=== PATIENT | female | born 1945 | race Caucasian/White ===

== ENCOUNTER → 2023-09-04 07:23 | Outpatient (REF) | payer MEDICARE, OTHER, SELFPAY ==
[2023-09-04 10:04] LABS: ALT (SGPT) 19 U/L (0-35); AST (SGOT) 24 U/L (14-36); Albumin 4.1 g/dl (3.5-5.0); Alkaline Phosphatase 52 U/L (38-126); Blood Urea Nitrogen 18 mg/dl (7-17); Calcium 9.5 mg/dl (8.4-10.2); Carbon Dioxide 31 mmol/L (22-30); Chloride 100 mmol/L (98-107); Glucose 95 mg/dl (70-99); HDL Cholesterol 62 mg/dl; LDL Cholesterol, Calculated 72 mg/dl; Potassium 4.3 mmol/L (3.5-5.1); Sodium 138 mmol/L (135-145); Total Bilirubin 1.2 mg/dl (0.2-1.3); Total Cholesterol 156 mg/dl (50-199); Total Protein 6.7 g/dl (6.3-8.2); Triglyceride 111 mg/dl (10-149); Very Low Density Lipoprotein 22 mg/dl (0-30); eGFR > 60.00
[2023-09-04 10:21] LABS: Free T4 1.19 ng/dl (0.78-2.19); Vitamin D, 25-OH*** 46.5 ng/mL (30-80)
[2023-09-04 10:35] LABS: TSH 0.87 uIU/ml (0.47-4.68)
[2023-09-04 12:29] LABS: Glycohemoglobin (HgbA1c) 5.6 % (4.0-5.6)
== END ==
LOC: HWLAB 07:23
PROVIDERS: ATTENDING PHYSICIAN Internal Medicine Rheumatology; FAMILY PHYSICIAN Family Medicine
DX: E55.9 Vitamin D deficiency, unspecified (principal); M15.0 Primary generalized (osteo)arthritis; M16.0 Bilateral primary osteoarthritis of hip; M25.50 Pain in unspecified joint; M51.37 Other intervertebral disc degeneration, lumbosacral region; M70.61 Trochanteric bursitis, right hip; M79.10 Myalgia, unspecified site; M81.0 Age-related osteoporosis without current pathological fracture; E03.9 Hypothyroidism, unspecified; E78.2 Mixed hyperlipidemia; R73.01 Impaired fasting glucose
CPT/HCPCS: 36415; 80053; 80061; 82306; 83036; 84439; 84443

== ENCOUNTER → 2023-10-03 13:30 | Outpatient (REF) | payer MEDICARE, OTHER, SELFPAY | LOC: WDC 13:30 | PROVIDERS: ATTENDING PHYSICIAN Obstetrics & Gynecology; FAMILY PHYSICIAN Family Medicine | DX: R92.8 Other abnormal and inconclusive findings on diagnostic imaging of breast (principal); R93.89 Abnormal findings on diagnostic imaging of other specified body structures | CPT/HCPCS: 76642 ==

== ENCOUNTER → 2023-10-19 06:35 | Day surgery (SDC) | payer MEDICARE, OTHER, SELFPAY | LOC: GI 06:35 | PROVIDERS: ATTENDING PHYSICIAN Internal Medicine | DX: D12.2 Benign neoplasm of ascending colon (principal); K57.30 Diverticulosis of large intestine without perforation or abscess without bleeding; K64.9 Unspecified hemorrhoids; K22.89 Other specified disease of esophagus; K44.9 Diaphragmatic hernia without obstruction or gangrene; K31.89 Other diseases of stomach and duodenum; Q40.3 Congenital malformation of stomach, unspecified; R12 Heartburn; Z80.0 Family history of malignant neoplasm of digestive organs | CPT/HCPCS: 45385; 43239; 88305; 88342 ==

== ENCOUNTER → 2024-02-09 07:51 | Outpatient (REF) | payer MEDICARE, OTHER, SELFPAY ==
[2024-02-09 10:29] LABS: ALT (SGPT) 24 U/L (0-35); AST (SGOT) 23 U/L (14-36); Albumin 4.2 g/dl (3.5-5.0); Alkaline Phosphatase 64 U/L (38-126); Blood Urea Nitrogen 19 mg/dl (7-17); Calcium 9.3 mg/dl (8.4-10.2); Carbon Dioxide 27 mmol/L (22-30); Chloride 101 mmol/L (98-107); Glucose 102 mg/dl (70-99); HDL Cholesterol 58 mg/dl; LDL Cholesterol, Calculated 96 mg/dl; Potassium 4.3 mmol/L (3.5-5.1); Sodium 142 mmol/L (135-145); Total Bilirubin 1.3 mg/dl (0.2-1.3); Total Cholesterol 176 mg/dl (50-199); Total Protein 6.7 g/dl (6.3-8.2); Triglyceride 114 mg/dl (10-149); Very Low Density Lipoprotein 22 mg/dl (0-30); eGFR > 60.00
== END ==
LOC: HWLAB 07:51
PROVIDERS: ATTENDING PHYSICIAN Family Medicine
DX: E78.2 Mixed hyperlipidemia (principal); R73.01 Impaired fasting glucose; E03.9 Hypothyroidism, unspecified
CPT/HCPCS: 36415; 80053; 80061; 84439; 84443

== ENCOUNTER → 2024-03-08 09:43 | Outpatient (REF) | payer MEDICARE, OTHER, SELFPAY | LOC: RCS 09:43 | PROVIDERS: ATTENDING PHYSICIAN Family Medicine | DX: R07.2 Precordial pain (principal) | CPT/HCPCS: 93017; 93350 ==

== ENCOUNTER 2024-03-19 06:25 | Day surgery (SDC) | payer MEDICARE, OTHER, SELFPAY ==
[2024-03-19 06:45] VITALS: BP 149/78
[2024-03-19] MEDS: LOW STRENGTH ASPIRIN 81 MG PO (07:22)
[2024-03-19 07:24] VITALS: BMI 32.2
[2024-03-19 07:38] LABS: Hematocrit 43.2 % (37.0-47.0); Hemoglobin 14.6 g/dL (12.0-16.0); Mean Corp Hgb Conc. 33.8 g/dL (33.0-37.0); Mean Corpuscular Hgb 29.2 pg (27.0-31.0); Mean Corpuscular Volume 86.4 fL (81.0-99.0); Mean Platelet Volume 9.6 fL (7.4-10.4); Platelet Count 187 10^3/uL (130-400); Red Cell Dist. Width 12.9 % (11.5-14.5); White Blood Cell Count 5.6 10^3/uL (4.8-10.8)
[2024-03-19 07:46] LABS: ALT (SGPT) 29 U/L (0-35); AST (SGOT) 32 U/L (14-36); Albumin 4.8 g/dl (3.5-5.0); Alkaline Phosphatase 56 U/L (38-126); Blood Urea Nitrogen 19 mg/dl (7-17); Calcium 9.9 mg/dl (8.4-10.2); Carbon Dioxide 30 mmol/L (22-30); Chloride 101 mmol/L (98-107); Estimated Creatinine Clearance 56 ml/min; Glucose 112 mg/dl (70-99); Potassium 4.2 mmol/L (3.5-5.1); Sodium 142 mmol/L (135-145); Total Bilirubin 1.4 mg/dl (0.2-1.3); Total Protein 7.6 g/dl (6.3-8.2); eGFR > 60.00
[2024-03-19 08:40] VITALS: BP 115/70
[2024-03-19 08:55] VITALS: BP 112/54
[2024-03-19 09:10] VITALS: BP 118/58
[2024-03-19 09:25] VITALS: BP 116/56
[2024-03-19 09:43] VITALS: BP 114/54
--- NOTE | 2024-03-19 15:53 | ITS.CL.CATH ---
Labor Service Representative - Catheterization
Cardiac Catheterization
Procedure Report:
LEFT HEART CATHETERIZATION
Date of Procedure: March 19, 2024
Referring: Dr. Tan Thompson
PROCEDURES:
1. Left heart catheterization with coronary and single-plane left ventriculography
INDICATION: Exercise intolerance with heart block induced with exercise
ACCESS: Right radial artery, 6 Kiswahili sheath
HEMODYNAMICS : (mmHg)
AO (s/d) : 135/64, 88
LV (s/d) : 138/12
LVEDP : 28
CORONARY FINDINGS
DOMINANCE: Left
LEFT MAIN: Normal
LEFT ANTERIOR DESCENDING: The LAD arises normally from the left main and runs in the anterior interventricular groove. The LAD has minor irregularities over its course. The distal vessel wraps completely around the apex supplying a portion of the
inferior wall. Only minor irregularities are present
CIRCUMFLEX: The circumflex is a moderate to large caliber dominant vessel. OM1 is a medium size vessel that arises proximally from the circumflex and is widely patent. OM 2 is small and tortuous. The circumflex continues in the AV groove
supplying a small OM 3 and terminating in the PDA and posterolateral branch which are both patent
RIGHT CORONARY ARTERY: Small nondominant
VENTRICULOGRAPHY: Left ventriculography was performed in an MCFADDEN projection. The digital single-plane left ventricular ejection fraction is estimated at 65%. No regional wall motion abnormalities are noted.
RADIATION SUMMARY: Fluoro Time (min): 2.2, Dose (mGy): 213.7, DAP (Gy.cm2) : 15.8
Closure Device: TR band
CONCLUSIONS
1. Nonobstructive coronary disease
2. Preserved left ventricular systolic function
Copy to: Dr. Tan Thompson
== END 2024-03-19 11:45 | disposition home or self-care (01) ==
LOC: CATH 06:25
PROVIDERS: ATTENDING PHYSICIAN Internal Medicine Interventional Cardiology; FAMILY PHYSICIAN Family Medicine; OTHER PHYSICIAN Internal Medicine Cardiovascular Disease
DX: I25.10 Atherosclerotic heart disease of native coronary artery without angina pectoris (principal); E78.00 Pure hypercholesterolemia, unspecified; E03.9 Hypothyroidism, unspecified; Z79.82 Long term (current) use of aspirin
CPT/HCPCS: 80053; 85027; 93458; C1894; Q9967

== ENCOUNTER → 2024-04-04 09:53 | Outpatient (REF) | payer MEDICARE, OTHER, SELFPAY | LOC: HWWDC 09:53 | PROVIDERS: ATTENDING PHYSICIAN Obstetrics & Gynecology; FAMILY PHYSICIAN Family Medicine | DX: Z12.31 Encounter for screening mammogram for malignant neoplasm of breast (principal) | CPT/HCPCS: 77063; 77067 ==

== ENCOUNTER → 2024-04-17 12:48 | Outpatient (REF) | payer MEDICARE, OTHER, SELFPAY | LOC: HWRCS 12:48 | PROVIDERS: ATTENDING PHYSICIAN Physician Assistant Medical; FAMILY PHYSICIAN Family Medicine | DX: I44.1 Atrioventricular block, second degree (principal) | CPT/HCPCS: 93306 ==

== ENCOUNTER → 2024-04-25 09:53 | Outpatient (REF) | payer MEDICARE, OTHER, SELFPAY | LOC: WDC 09:53 | PROVIDERS: ATTENDING PHYSICIAN Obstetrics & Gynecology; FAMILY PHYSICIAN Family Medicine | DX: R92.2 Inconclusive mammogram (principal) | CPT/HCPCS: 76641 ==

== ENCOUNTER 2024-04-29 10:23 | Day surgery (SDC) | payer MEDICARE, OTHER, SELFPAY ==
[2024-04-29] VITALS (9 sets, daily range): BP systolic 114–145; BP diastolic 53–69; BMI 34.1
[2024-04-29 10:38] LABS: Hematocrit 41.3 % (37.0-47.0); Hemoglobin 13.6 g/dL (12.0-16.0); Mean Corp Hgb Conc. 32.9 g/dL (33.0-37.0); Mean Corpuscular Hgb 28.9 pg (27.0-31.0); Mean Corpuscular Volume 87.9 fL (81.0-99.0); Mean Platelet Volume 9.1 fL (7.4-10.4); Platelet Count 186 10^3/uL (130-400); White Blood Cell Count 5.7 10^3/uL (4.8-10.8)
[2024-04-29 10:55] LABS: ALT (SGPT) 23 U/L (0-35); AST (SGOT) 24 U/L (14-36); Albumin 4.6 g/dl (3.5-5.0); Alkaline Phosphatase 52 U/L (38-126); Blood Urea Nitrogen 15 mg/dl (7-17); Calcium 9.4 mg/dl (8.4-10.2); Carbon Dioxide 30 mmol/L (22-30); Chloride 102 mmol/L (98-107); Glucose 102 mg/dl (70-99); Potassium 4.2 mmol/L (3.5-5.1); Sodium 140 mmol/L (135-145); Total Bilirubin 1.5 mg/dl (0.2-1.3); Total Protein 7.2 g/dl (6.3-8.2); eGFR > 60.00
--- NOTE | 2024-04-29 14:40 | ITS.CL.PACE ---
Valuer - Pacemaker Implant
Pacemaker Implant
Procedure Report:
PACEMAKER IMPLANT REPORT
Primary Care Provider: Dr. Omar Lockhart
Primary endoscopy technician: Dr Gallo Thompson
Date of Procedure: April 29, 2024
Procedure:
Implantation of dual-chamber permanent pacemaker utilizing the left bundle branch for conduction system pacing
Indication/Diagnosis:
Non-reversible symptomatic bradycardia due to sinus node dysfunction (symptomatic chronotropic incompetence)
During exercsie stress test developed chest discomfort and 2:1 AV block also seen on outpatient monitor both performed in February 2024
After informed consent was obtained, 'time out' was called and confirmed, the patient was prepped and draped in a sterile fashion. Lidocaine with epi was used for local anesthesia. Central venous access was obtained via subclavian venipuncture. An
incision was made along the left chest and a pre-pectoral pocket was formed. Using a Seldinger technique and peel-away sheaths, the pacing leads were placed under fluoroscopic guidance.
Fluoroscopy was used to determine likely anatomic site for left bundle branch pacing. The Medtronic C315 sheath was used to deliver the Medtronic 3830 Selectsecure pacing lead with the helix exposed just exposed from the sheath tip during continuous
monitoring when pacemapping the septum during gentle clockwise rotation to obtain a paced QRS morphology of a W pattern in lead V1. Once the suspected optimal site was identified, lead deployment was performed with several rapid rotations as paced
QRS morphology was intermittently monitored until a paced QRS complex in lead V1 demonstrated development of an R wave [ ] (qR or rSR).
Unipolar pacing impedance dropped by [id number] ohms suggesting it had reached the left ventricular subendocardial.
Stable VEgm injury current is present throughout final lead position including at end of case, suggesting there was no perforation through the septum into the LV cavity.
Unipolar pacing impedance is 1100 Ohms
Unipolar pacing threshold is stable at 1 V @ 0.4 ms.
Final conduction system paced QRS complex duration is 98 ms
LVAT is 85 ms and peak V5 -> peak V1 timing is 45 ms
Right atrial lead was placed at the RAA.
Once testing (see below) showed adequate and stable function, the leads were secured using the suture sleeves. The pocket was liberally irrigated with antibiotic solution. The leads were connected to the generator header and the leads and
generator were placed within the pocket. Fluoroscopy confirmed stable lead position. The pocket was closed in the typical fashion.
Fluoroscopy was used to guide lead placement.
IMPLANTS:
Medtronic [id number], SN: [id number], Left Pectoral
RA: Medtronic 5076-45, SN: [id number], RAA
Left Bundle: Medtronic 3830 , SN:[id number], Interventricular septum at LBB
DEVICE TESTING:
Sensing: RA 3.5 mV, RV 8 mV
Capture: RA 2.75 V@0.4ms, RV 0.75 V@0.4ms
Ohms: RA 606, RV 1120
FINAL PROGRAMMING
Dharmesh Pacing: AAIR+ 60-130 ppm
COMPLICATIONS:
None
CONCLUSIONS:
Successful implant of dual chamber permanent pacemaker utilizing Left Bundle Branch conduction system capture for ventricular resynchronization pacing.
Note that despite multiple areas mapped in the right atrium a higher than typically observed pacing threshold is accepted.
RECOMMENDATIONS:
1. Post-op care (tele, CXR, IV abx)
2. In-Office wound check in 5-7 days
Copy to:
Dr. Omar Lockhart
Dr Gallo Thompson
[2024-04-29] MEDS: TYLENOL 650 MG PO (14:51)
--- NOTE | 2024-04-29 15:12 | PTCARENOTE ---
Patient admitted to IVU awake and alert. Left chest wall dressing CDI with left arm sling, precaution reviewed. NSR on telemetry, at beside, call hough in reach
--- NOTE | 2024-04-29 16:01 | PTCARENOTE ---
Patient out of bed to the chair, voided. Call hough in reach
[2024-04-29] MEDS: LIPITOR 10 MG PO (17:45)
[2024-04-29] MEDS: ANCEF 5 IV (17:46)
[2024-04-30] MEDS: ANCEF 5 IV (01:59)
[2024-04-30] MEDS: TYLENOL 650 MG PO ×2 (02:10→09:13)
[2024-04-30 03:53] VITALS: BP 113/61
[2024-04-30 03:56] VITALS: BMI 34.1
[2024-04-30 04:25] LABS: Hematocrit 38.9 % (37.0-47.0); Hemoglobin 12.8 g/dL (12.0-16.0); Mean Corp Hgb Conc. 32.9 g/dL (33.0-37.0); Mean Corpuscular Hgb 28.8 pg (27.0-31.0); Mean Corpuscular Volume 87.6 fL (81.0-99.0); Mean Platelet Volume 9.1 fL (7.4-10.4); Platelet Count 177 10^3/uL (130-400); Red Blood Cell Count 4.44 10^6/uL (4.20-5.40); Red Cell Dist. Width 12.8 % (11.5-14.5); White Blood Cell Count 9.5 10^3/uL (4.8-10.8)
[2024-04-30 05:06] LABS: Blood Urea Nitrogen 18 mg/dl (7-17); Calcium 9.3 mg/dl (8.4-10.2); Carbon Dioxide 25 mmol/L (22-30); Chloride 103 mmol/L (98-107); Estimated Creatinine Clearance 52 ml/min; Glucose 110 mg/dl (70-99); Magnesium 2.4 mg/dl (1.6-2.3); Potassium 4.4 mmol/L (3.5-5.1); Sodium 137 mmol/L (135-145); eGFR > 60.00
[2024-04-30] MEDS: SYNTHROID 100 MCG PO (06:22)
[2024-04-30 06:51] VITALS: BP 116/52
--- NOTE | 2024-04-30 07:46 | PTCARENOTE ---
care link express completed as ordered.
--- NOTE | 2024-04-30 08:25 | W.PN.CARDCBS ---
Today's Communication / Plan
-
post DC PPM, stable for d/c home
Impression / Plan
-
PCP: Omar Lockhart MD
CDY: Tan Riojas MD
Impression:
Symptomatic bradycardia
SSS
post DC PPM 04/29/2024
HTN
Hypothyroidism
Hyperlipidemia
Chronic lumbar back pain with sciatica
Plan:
post device site stable
tele SB with occ Atrial pacing, settings 50-130bpm
[facility]link with stable parameters
denies LH, dizziness
CXR no PTX, leads in position
Hypothyroidism continue levothyroxine
HLD continue atorvastatin
Activity restrictions reviewed.
Incision check 1 week at [facility]
home today
Progress Note - Trip Rider
Subjective
Date of Service: April 30, 2024
mild inc pain, denies cp, sob, LH, dizziness
Objective
Labs:
04/30/24 04:03
04/30/24 04:03
Labs
Hgb 12.8 g/dL (12.0-16.0) 04/30/24 04:03
Hct 38.9 % (37.0-47.0) 04/30/24 04:03
Plt Count 177 10^3/uL (130-400) 04/30/24 04:03
Sodium 137 mmol/L (135-145) 04/30/24 04:03
Potassium 4.4 mmol/L (3.5-5.1) 04/30/24 04:03
BUN 18 mg/dl (7-17) H 04/30/24 04:03
Creatinine 0.7 mg/dL (0.6-1.0) 04/30/24 04:03
Glucose 110 mg/dl (70-99) H 04/30/24 04:03
Vital Signs and I&O:
Vital Signs
Temp Pulse Resp BP Pulse Ox
98.0 F 54 16 113/61 97
04/30/24 06:52 04/30/24 04:00 04/30/24 06:52 04/30/24 03:53 04/30/24 06:52
Vital Signs
Temp Pulse Resp BP Pulse Ox
98.0 F 54 16 113/61 97
04/30/24 06:52 04/30/24 04:00 04/30/24 06:52 04/30/24 03:53 04/30/24 06:52
Intake & Output
04/28/24 04/29/24 04/30/24 05/01/24
06:59 06:59 06:59 06:59
Intake Total 250 / 250
Balance 250 / 250
Physical Exam
Physical Exam
NAD, AOX3
S1, S2, RRR
CTAB, non labored, no wheeze
SNTND Bsx4
L CW dressing c/d/i no HT, mildly tender to palpation, pressure dressing removed
--- NOTE | 2024-04-30 10:04 | PTCARENOTE ---
received patient this am, monitor shows SB, VSS, LCW pressure dsg. removed, Acuseal intact. patient is hoping to be D/C to home today.
[2024-04-30 11:09] VITALS: BP 127/61
[2024-04-30 11:10] VITALS: BP 127/61
--- NOTE | 2024-04-30 11:33 | CM ---
spoke to pt in room, she is prev indep, lives with her husb in a 2 story home with no steps to enter. she denies any dme's or dc planning needs. plan is for dc to home when medically stable
--- NOTE | 2024-04-30 12:05 | PTCARENOTE ---
D/C instructions given to patient, verbalizes understanding. understands post pacemaker insertion instructions. INT D/C'd, telemetry D/C'd, personal belongings packed and sent home with patient. D/C to home via wc accompanied by staff.
--- NOTE | 2024-04-30 12:07 | W.DS.TRANS ---
DC Summary - Log Rafter
-
Discharge Instructions:
Discharge Diagnosis/Procedures Pacemaker implant
Diet Low Cholesterol
Driving Restrictions No driving for 1 week
Bathing Restrictions OK to Shower
Instructions:
Stand-Alone Forms: DC Inst - Implanted Device
Changes to Home Medications: No
Discharge Medications:
DC Medications w/original date entered in [employer]
levothyroxine 100 mcg tablet 100 mcg PO Q48H 04/28/11
levothyroxine 75 mcg tablet 75 mcg PO Q48H 12/20/16
atorvastatin 10 mg tablet 10 mg PO QPM 03/19/24
calcium 315 mg (as citrate)-vitamin D3 5 mcg (200 unit) tablet (Calcium Citrate + D) 1 tab PO DAILY PRN When no calcium intake w/ food 03/19/24
cholecalciferol (vitamin D3) 25 mcg (1,000 unit) tablet (Vitamin D3) 25 mcg PO DAILY 03/19/24
denosumab 60 mg/mL subcutaneous syringe (Prolia) 60 mg SC [id number] 03/19/24
pantoprazole 40 mg tablet,delayed release 40 mg PO DAILY PRN Indigestion 03/19/24
peg 400-propylene glycol (PF) 0.4 %-0.3 % eye drops in a dropperette (Systane (PF)) 1 drp ophthalmic (eye) DAILY PRN Dry eyes 03/19/24
Home Medication Changes
Pending Results: No
== END 2024-04-30 11:55 | disposition home or self-care (01) ==
LOC: CATH 10:23
PROVIDERS: Nurse Practitioner; ATTENDING PHYSICIAN Internal Medicine Cardiovascular Disease; FAMILY PHYSICIAN Family Medicine; OTHER PHYSICIAN Internal Medicine Cardiovascular Disease
DX: I49.5 Sick sinus syndrome (principal); Z79.890 Hormone replacement therapy; I44.1 Atrioventricular block, second degree; E78.2 Mixed hyperlipidemia
CPT/HCPCS: 33208; 71045; 80048; 80053; 83735; 85027; 93005; C1785; C1887; C1892; C1898; Q9967

== ENCOUNTER → 2024-05-23 10:17 | Outpatient (REF) | payer MEDICARE, OTHER, SELFPAY | LOC: CLAB 10:17 | PROVIDERS: ATTENDING PHYSICIAN Nurse Practitioner Family | DX: J02.9 Acute pharyngitis, unspecified (principal) | CPT/HCPCS: 87070 ==

== ENCOUNTER → 2024-07-15 07:56 | Outpatient (REF) | payer MEDICARE, OTHER, SELFPAY ==
[2024-07-15 09:42] LABS: ALT (SGPT) 20 U/L (0-35); AST (SGOT) 23 U/L (14-36); Albumin 4.5 g/dl (3.5-5.0); Alkaline Phosphatase 54 U/L (38-126); Blood Urea Nitrogen 19 mg/dl (7-17); Calcium 9.7 mg/dl (8.4-10.2); Carbon Dioxide 30 mmol/L (22-30); Chloride 101 mmol/L (98-107); Glucose 100 mg/dl (70-99); HDL Cholesterol 57 mg/dl; LDL Cholesterol, Calculated 88 mg/dl; Potassium 4.2 mmol/L (3.5-5.1); Sodium 134 mmol/L (135-145); Total Bilirubin 1.5 mg/dl (0.2-1.3); Total Cholesterol 170 mg/dl (50-199); Total Protein 6.8 g/dl (6.3-8.2); Triglyceride 127 mg/dl (10-149); Very Low Density Lipoprotein 25 mg/dl (0-30); eGFR > 60.00
[2024-07-15 09:57] LABS: Free T4 1.38 ng/dl (0.78-2.19); Vitamin D, 25-OH*** 36.7 ng/mL (30-80)
[2024-07-15 10:10] LABS: TSH 0.63 uIU/ml (0.47-4.68)
== END ==
LOC: HWLAB 07:56
PROVIDERS: ATTENDING PHYSICIAN Internal Medicine Rheumatology; FAMILY PHYSICIAN Family Medicine
DX: E03.9 Hypothyroidism, unspecified (principal); E78.2 Mixed hyperlipidemia; E55.9 Vitamin D deficiency, unspecified
CPT/HCPCS: 36415; 80053; 80061; 82306; 84439; 84443

== ENCOUNTER → 2024-10-21 13:52 | Outpatient (REF) | payer MEDICARE, OTHER, SELFPAY | LOC: WDC 13:52 | PROVIDERS: ATTENDING PHYSICIAN Obstetrics & Gynecology; FAMILY PHYSICIAN Family Medicine | DX: R92.8 Other abnormal and inconclusive findings on diagnostic imaging of breast (principal) | CPT/HCPCS: 76642 ==

== ENCOUNTER → 2024-11-25 07:13 | Outpatient (REF) | payer MEDICARE, OTHER, SELFPAY ==
[2024-11-25 10:06] LABS: ALT (SGPT) 19 U/L (0-35); Albumin 4.4 g/dl (3.5-5.0); Carbon Dioxide 28 mmol/L (22-30); Chloride 105 mmol/L (98-107); HDL Cholesterol 62 mg/dl; Potassium 4.1 mmol/L (3.5-5.1); Sodium 139 mmol/L (135-145); Total Protein 7.0 g/dl (6.3-8.2)
[2024-11-25 10:16] LABS: Alkaline Phosphatase 49 U/L (38-126); Blood Urea Nitrogen 20 mg/dl (7-17); Calcium 9.9 mg/dl (8.4-10.2); Very Low Density Lipoprotein 20 mg/dl (0-30); eGFR > 60.00
[2024-11-25 10:19] LABS: Glycohemoglobin (HgbA1c) 5.6 % (4.0-5.6)
[2024-11-25 10:22] LABS: TSH 0.82 uIU/ml (0.47-4.68)
[2024-11-25 10:31] LABS: AST (SGOT) 20 U/L (14-36); Glucose 93 mg/dl (70-99); LDL Cholesterol, Calculated 79 mg/dl
== END ==
LOC: HWLAB 07:13
PROVIDERS: ATTENDING PHYSICIAN Physician Assistant; FAMILY PHYSICIAN Family Medicine
DX: E55.9 Vitamin D deficiency, unspecified (principal); M81.0 Age-related osteoporosis without current pathological fracture; Z51.81 Encounter for therapeutic drug level monitoring; E03.9 Hypothyroidism, unspecified; R73.01 Impaired fasting glucose; E78.2 Mixed hyperlipidemia
CPT/HCPCS: 36415; 80053; 80061; 83036; 84439; 84443

== ENCOUNTER → 2024-12-30 10:29 | Outpatient (REF) | payer MEDICARE, OTHER, SELFPAY | LOC: HWRAD 10:29 | PROVIDERS: ATTENDING PHYSICIAN Internal Medicine Rheumatology; FAMILY PHYSICIAN Family Medicine | DX: M81.0 Age-related osteoporosis without current pathological fracture (principal); Z13.820 Encounter for screening for osteoporosis | CPT/HCPCS: 77080 ==

== ENCOUNTER → 2025-03-24 10:46 | Outpatient (REF) | payer MEDICARE, OTHER, SELFPAY | LOC: HWWDC 10:46 | PROVIDERS: ATTENDING PHYSICIAN Obstetrics & Gynecology; FAMILY PHYSICIAN Family Medicine | DX: Z12.31 Encounter for screening mammogram for malignant neoplasm of breast (principal) | CPT/HCPCS: 77063; 77067 ==

== ENCOUNTER → 2025-04-15 09:59 | Outpatient (REF) | payer MEDICARE, OTHER, SELFPAY | LOC: WDC 09:59 | PROVIDERS: ATTENDING PHYSICIAN Obstetrics & Gynecology; FAMILY PHYSICIAN Family Medicine | DX: R92.30 Dense breasts, unspecified (principal) | CPT/HCPCS: 76641 ==

== ENCOUNTER 2025-05-19 10:18 | Emergency (ER) | payer MEDICARE, OTHER, SELFPAY ==
[2025-05-19 10:21] VITALS: BP 148/72
--- NOTE | 2025-05-19 11:05 | ED.GENMED ---
History of Present Illness
General
Chief Complaint: Throat Problem
Source: patient
Time Seen by Provider: 05/19/25 10:43
History of Present Illness
History of Present Illness:
80-year-old female with past medical history of thyroid disorder presenting to the emergency department for evaluation of sore throat x 3 days, hoarse voice and sinus congestion stating that she has sinus infections throughout the year that usually
cleared up with antibiotics, was concerned because she was not eating or drinking anything over the last 24 hours due to the pain in her throat which is ultimately what prompted her to come to the ER today. Tactile fever at home but afebrile here,
did not take any medications prior to arrival. She denies any cough, shortness of breath, abdominal pain, nausea or vomiting.
Past History
Past History
ED Past Medical History: Hypercholesterolemia and Hypothyroidism
ED Past Surgical History: None
Social History
Tobacco: Non-smoker
Alcohol: None
Drug: None
Personal:
Living: with family
Family History
Family History: Negative Early CAD
Review of Systems
Review of Systems
All Other Systems: ROS reviewed and negative except as documented in HPI and ROS
Phy Exam
Physical Exam
Physical Exam:
GENERAL: Alert , in no apparent distress, speaking full sentences
HEAD: Normocephalic atraumatic
EYE: Clear conjunctiva
NECK: Supple, no significant adenopathy.
ENT: o/p clr, mmm. TMs clear bilateral, posterior oropharynx is erythematous but there is no tonsillar edema or exudates, no uvular deviation, patient tolerating secretions, no trismus or stridor
CARDIAC: Regular rate and rhythm .
LUNGS: Clear breath sounds bilaterally, no acute respiratory distress, no wheezes/rales/rhonchi
NEUROLOGICAL: Alert and oriented
SKIN: Warm and dry, skin intact.
MUSCULOSKELETAL: No edema, well perfused.
PSYCH: Normal and appropriate interaction.
Scores
Heart Failure Risk
Heart Failure Risk Score: Not Applicable
Heart Score for Chest Pain Patients
STEMI patient?: Not applicable
Withdrawal Assessment of Alcohol
Withdrawal Assessment Completed?: Not applicable
Course
Orders/Labs/Results
Orders:
Orders
05/19/25 10:57
Benzocaine/Menthol [Anesthetic Lozenge] 1 lozenge PO NOW STA
05/19/25 11:10
COVID-19 Antigen Urgent
Source: Nasal Swab
Influenza A+B Rapid Molecular Urgent
KATLYN Source: Nasal Swab
Specimen Description:
Rapid Strep Group A Urgent
KATLYN Source: Throat/Pharynx
Specimen Description:
Date Specimen was Collected: 05/19/25
Time Specimen was Collected: 11:04
Abnormal Lab Results
05/19/25
11:10
SARS-CoV-2 Antigen Positive A
(Negative)
Vital Signs
Initial and Last Documented VS:
Initial Vital Signs
Temp Pulse Resp BP Pulse Ox
98.1 F 82 20 148/72 97
05/19/25 10:21 05/19/25 10:21 05/19/25 10:21 05/19/25 10:21 05/19/25 10:21
Last Documented Vital Signs
Temp Pulse Resp BP Pulse Ox
98.1 F 82 20 148/72 97
05/19/25 10:21 05/19/25 10:21 05/19/25 10:21 05/19/25 10:21 05/19/25 11:09
MDM/Problems Addressed
Differential Diagnosis Includes:
Covid
Flu
Strep throat
Sinusitis
TRAVELING ELECTRICIAN
Retropharyngeal abscess
MDM/Problems Addressed:
80-year-old female presented to the ER for URI-like symptoms over the last 3 days. Did not take any medications prior to arrival. She is afebrile, hemodynamically stable, tolerating oral secretions. COVID flu and strep testing ordered. I do
suspect viral etiology is most likely. Patient insisting she needs antibiotic. Will prescribe antibiotic but advised the patient to wait another 48 hours prior to taking to see if symptoms do improve. Supportive care measures discussed.
*Pulse Oximetry
SaO2: 97
Oxygen Mode of Delivery: Room air
Patient hypoxic: no
*Critical Care Note
Total Time (30-74mins, 75-104mins- exclusive of procedures): Not Applicable
Patient Management
Escalation/DeEscalation of care consider admission/obs:
Patient tested positive for COVID. Stable for discharge home. No indication for antibiotics.
ED Attending Note
-
Portions of this chart may have been created with voice recognition software.� Occasional wrong word or��sound alike� substitutions may have occurred due to the inherent limitations of voice recognition software.
Discharge Plan
Departure
Patient Disposition: Home (Routine Discharge)
Date of Disposition: 05/19/25
Time of Disposition: 11:43
Patient with high blood pressure during this ER visit?: Yes
Discharge Problem:
COVID-19
Instructions: COVID-19 in adults (DC)
Prescriptions:
No Action
levothyroxine 100 MCG tablet
100 mcg PO Q48H
levothyroxine 75 MCG tablet
75 mcg PO Q48H
atorvastatin 10 mg Tablet
10 mg PO QPM
pantoprazole 40 mg Tablet,Delayed Release (Dr/Ec)
40 mg PO DAILY PRN (Reason: Indigestion)
calcium citrate-vitamin D3 [Calcium Citrate + D] 315 mg-5 mcg (200 unit) Tablet
1 tab PO DAILY PRN (Reason: When no calcium intake w/ food)
Systane (PF) 0.4-0.3 % Dropperette
1 drp OPHTHALMIC (EYE) DAILY PRN (Reason: Dry eyes)
cholecalciferol (vitamin D3) [Vitamin D3] 25 mcg (1,000 unit) Tablet
25 mcg PO DAILY
Prolia 60 mg/mL Syringe
60 mg SC [id number]
Referrals:
Omar Lockhart MD [Family Provider, Family Practice]
Interventions
Interventions:
*General Assessment Last Done: 05/19/25 10:21
*Neglect/Abuse Screening Last Done: 05/19/25 10:21
*ED COVID-19 Vaccine History Last Done: 05/19/25 11:34
*ED Influenza Vaccine History Last Done: 05/19/25 11:34
[facility] Fall Risk Assessment Tool Last Done: 05/19/25 11:35
*Risk Screen - Suicide (C-SSRS) Last Done: 05/19/25 11:34
*Nursing Disposition Last Done: 05/19/25 11:46
ED-EENT Assessment Last Done: 05/19/25 11:20
ED- Pulmonary Assessment Last Done: 05/19/25 11:20
Discharge Date and Time
Discharge Date/Time: 05/19/25 11:47
Print Language: [id number]
[2025-05-19] MEDS: ANESTHETIC LOZENGE 1 LOZENGE PO (11:19)
[2025-05-19 11:37] LABS: COVID-19 Antigen Positive (Negative)
== END 2025-05-19 11:47 | disposition home or self-care (01) ==
LOC: EMR 10:18
PROVIDERS: Physician Assistant Medical; EMERGENCY PHYSICIAN Emergency Medicine; FAMILY PHYSICIAN Family Medicine
DX: U07.1 COVID-19 (principal); Z11.52 Encounter for screening for COVID-19; R03.0 Elevated blood-pressure reading, without diagnosis of hypertension; E03.9 Hypothyroidism, unspecified; E78.00 Pure hypercholesterolemia, unspecified; Z88.8 Allergy status to other drugs, medicaments and biological substances
CPT/HCPCS: 99283; 87070; 87502; 87811; 87880